=== PATIENT | male | born 1960 | race Caucasian/White ===

== ENCOUNTER 2016-11-03 16:08 | Emergency (ER) | payer BC ==
--- NOTE | 2016-11-03 18:51 | Emergency Department Record ---
History of Present Illness - General Chief complaint: ENT Stated complaint: EAR AND HEAD PAIN Time Seen by Provider: 11/03/16 16:21 Source: Patient Mode of Arrival: Ambulatory Limitations: No limitations - History of Present Illness Initial comments: pt has l ear pain and pain over mastoid for 4 days complaint: Ear pain Onset/Timin -: Days(s) Location: L ear Severity: Moderate Severity scale (1-10): 6 Quality: Aching Consistency: Constant Improves with: None Worsens with: None - Related Data Home Medications Medication Instructions Recorded Confirmed Last Taken Alprazolam [Alprazolam] 0.25 mg PO ASDIR 11/03/16 11/03/16 Unknown Diltiazem HCl [Diltiazem 24Hr ER] 180 mg PO DAILY 11/03/16 11/03/16 Unknown Fluticasone Propionate [Flonase 9.9 ml NS DAILY 11/03/16 11/03/16 Unknown Allergy Relief] Levothyroxine Sodium [Synthroid] 125 mcg PO DAILY 11/03/16 11/03/16 Unknown Simvastatin [Simvastatin] 40 mg PO DAILY 11/03/16 11/03/16 Unknown Previous Rx's Medication Instructions Recorded Ibuprofen [Motrin 600Mg] 600 mg PO Q6H #30 tablet 11/03/16 Sulfamethoxazole/Trimethoprim 1 each PO BID #20 tablet 11/03/16 [Bactrim Ds Tablet] Allergies Allergy/AdvReac Type Severity Reaction Status Date / Time Carbapenems Allergy Unknown RASH Verified 11/03/16 18:31 Cephalosporins Allergy Unknown RASH Verified 11/03/16 18:31 Penicillins Allergy Unknown RASH Verified 11/03/16 18:31 Allergies: Allergy Unknown allergies Uncoded 11/03/16 18:31 Travel Screening - Travel/Exposure Within Last 30 Days Have you traveled within the last 30 days?: No Review of Systems Reviewed: No additional complaints except as noted below Constitutional: Reports: As per HPI. Denies: Chills, Fever, Malaise, Night sweats, Weakness, Weight change Eyes: Reports: As per HPI. Denies: Eye discharge, Eye pain, Photophobia, Vision change ENT: Reports: As per HPI. Denies: Congestion, Dental pain, Ear pain, Epistaxis , Hearing loss, Throat pain Respiratory: Reports: As per HPI. Denies: Cough, Dyspnea, Hemoptysis, Stridor, Wheezes Cardiovascular: Reports: As per HPI. Denies: Arrhythmia, Chest pain, Dyspnea on exertion, Edema, Murmurs, Orthopnea, Palpitations, Paroxysmal nocturnal dyspnea, Rheumatic Fever, Syncope Endocrine: Reports: As per HPI. Denies: Fatigue, Heat or cold intolerance, Polydipsia, Polyuria Gastrointestinal: Reports: As per HPI. Denies: Abdominal pain, Constipation, Diarrhea, Hematemesis, Hematochezia, Melena, Nausea, Vomiting Genitourinary: Reports: As per HPI. Denies: Dysuria, Frequency, Hematuria, Incontinence, Retention, Testicular pain, Testicular mass, Urgency Musculoskeletal: Reports: As per HPI. Denies: Arthralgia, Back pain, Gout, Joint swelling, Myalgia, Neck pain Skin: Reports: As per HPI. Denies: Bruising, Change in color, Change in hair/ nails, Lesions, Pruritus, Rash Neurological: Reports: As per HPI. Denies: Abnormal gait, Confusion, Headache, Numbness, Paresthesias, Seizure, Tingling, Tremors, Vertigo, Weakness Psychiatric: Reports: As per HPI. Denies: Anxiety, Auditory hallucinations, Depression, Homicidal thoughts, Suicidal thoughts, Visual hallucinations Hematological/Lymphatic: Reports: As per HPI. Denies: Anemia, Blood Clots, Easy bleeding, Easy bruising, Swollen glands Past Medical History - SOCIAL HISTORY Smoking Status: Never smoker Alcohol Use: None Drug Use: None - RESPIRATORY Hx Respiratory Disorders: No - CARDIOVASCULAR Hx Cardio Disorders: Yes Hx Hypertension: Yes Comment:: high cholesterol - NEURO Hx Neuro Disorders: No - GI Hx GI Disorders: No - Hx Genitourinary Disorders: No - ENDOCRINE Hx Endocrine Disorders: Yes Hx Thyroid Disease: Yes - MUSCULOSKELETAL Hx Musculoskeletal Disorders: No - PSYCH Hx Psych Problems: No - HEMATOLOGY/ONCOLOGY Hx Hematology/Oncology Disorders: No Family Medical History Any Significant Family History?: No Physical Exam - General General Appearance: Alert, Oriented x3, Cooperative, No acute distress - Head Head exam: Normal inspection - Eye Eye exam: Normal appearance, PERRL, EOMI Pupils: Normal accommodation - ENT ENT exam: Normal exam, Mucous membranes moist, Normal external ear exam, Normal orophraynx, TM's normal bilaterally, Other (partially occluded with cerumen) Ear exam: Normal external inspection, Other (tender over mastoid). negative: External canal tenderness Nasal Exam: Normal inspection. negative: Discharge, Sinus tenderness Mouth exam: Normal external inspection, Tongue normal Teeth exam: Normal inspection. negative: Dental caries Throat exam: Normal inspection. negative: Tonsillar erythema, Tonsillar exudate - Neck Neck exam: Normal inspection, Full ROM. negative: Tenderness - Respiratory Respiratory exam: negative: Respiratory distress - GI/Abdominal GI/Abdominal exam: Soft. negative: Tenderness - Rectal Rectal exam: Deferred - exam: Deferred - Extremities Extremities exam: Normal inspection, Full ROM, Normal capillary refill. negative: Tenderness - Back Back exam: Reports: Normal inspection, Full ROM. Denies: Muscle spasm, Rash noted, Tenderness - Neurological Neurological exam: Alert, CN II-XII intact, Normal gait, Oriented X3 - Psychiatric Psychiatric exam: Normal affect, Normal mood - Skin Skin exam: Dry, Intact, Normal color, Warm Course Vital Signs 11/03/16 18:28 Temperature 97.7 F Pulse Rate 75 Respiratory 18 Rate Blood Pressure 132/102 Pulse Ox 97 Disposition Disposition: Discharge Clinical Impression: Sinusitis Qualifiers: Sinusitis location: maxillary Chronicity: acute Recurrence: non-recurrent Qualified Code(s): J01.00 - Acute maxillary sinusitis, unspecified Disposition: Home, Self-Care Condition: (1) Good Instructions: Sinusitis (ED) Additional Instructions: follow up with family doctor. return sooner if worse. steam and moist soaks Prescriptions: Sulfamethoxazole/Trimethoprim [Bactrim Ds Tablet] 1 each PO BID #20 tablet Ibuprofen [Motrin 600Mg] 600 mg PO Q6H #30 tablet Forms: Patient Portal Access
[2016-11-03] MEDS ORDERED: TMP/SMZ 160MG/800MG TAB PO ONE (19:05)
--- NOTE | 2016-11-04 07:25 | CT SCAN REPORT ---
EXAM: CT SCAN OF THE INTERNAL AUDITORY CANALS WITHOUT CONTRAST HISTORY: PAIN WITHIN THE LEFT MASTOID AREA RADIATING UP THE SIDE OF THE SKULL. TECHNIQUE: Standard CT imaging of the internal auditory canals was performed in the axial plane without contrast. Additional coronal and sagittal reformatted images were also performed. Comparison: Previous MRI of the brain dated 06/14/16. FINDINGS: The visualized intracranial structures are unremarkable. The cerebellar pontine angles and internal auditory canals are normal. The inner ear structures are unremarkable and symmetric bilaterally. The middle ear cavities and ossicular chains appear normal. There is a tiny amount of nonspecific fluid within a few left mastoid air cells. This does not have the appearance of mastoiditis. The right mastoid air cells are clear. There are no acute osseous abnormalities. The temporomandibular joints appear within normal limits. The facial nerves courses appear unremarkable. The soft tissue superficial to the mastoid bones appear normal. The major salivary glands are unremarkable. There is no neck or facial inflammation. The visualized portions of the nasopharynx and oropharynx are unremarkable. There is moderate chronic mucosal thickening within the paranasal sinuses with a mucous retention cyst noted at the floor of the left maxillary sinus. Post surgical changes are also present within the sinuses bilaterally. No acute air fluid levels are identified. 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 IMPRESSION: 1. THERE IS TRACE FLUID WITHIN A FEW LEFT MASTOID AIR CELLS. THIS IS NONSPECIFIC AND DOES NOT HAVE THE APPEARANCE OF ACUTE MASTOIDITIS. 2. OTHERWISE UNREMARKABLE CT SCAN OF THE INTERNAL AUDITORY CANALS. 3. MODERATE CHRONIC MUCOSAL THICKENING WITHIN THE PARANASAL SINUSES. JOB NUMBER: [id number] MTDD
== END 2016-11-03 19:16 | disposition home or self-care (01) ==
LOC: ER 16:08
DX: J01.00 Acute maxillary sinusitis, unspecified (principal); H61.23 Impacted cerumen, bilateral
CPT/HCPCS: 99283 ×2; 70480; J3490